=== PATIENT | female | born 1950 ===

== ENCOUNTER 2024-05-14 14:25 | Day surgery (SDC) | payer SELFPAY ==
[2024-05-14] VITALS (7 sets, daily range): BP systolic 131–154; BP diastolic 48–64; BMI 38.3
== END 2024-05-14 16:58 | disposition home or self-care (01) ==
LOC: SDS 14:25
PROVIDERS: ATTENDING PHYSICIAN Internal Medicine Gastroenterology; FAMILY PHYSICIAN Student in an Organized Health Care Education/Training Program
PROC: BD47ZZZ Ultrasonography of Gastrointestinal Tract (ICD-10-PCS; 2024-05-14)
PROC: 0DJ08ZZ Inspection of Upper Intestinal Tract, Via Natural or Artificial Opening Endoscopic (ICD-10-PCS; 2024-05-14)
DX: K80.20 Calculus of gallbladder without cholecystitis without obstruction (principal)
CPT/HCPCS: 43237